=== PATIENT | male | born 1950 ===

== ENCOUNTER → 2017-03-25 | Outpatient (CLI) | payer OTHER ==
--- NOTE | 2017-03-25 16:41 | PCVCIMAG ---
APPROVED REPORT Exam: Stress Echocardiogram Indication: Hyperlipidemia, Hypertension, Chest Burning Stress Nurse: Dee Powell RN Status: routine Ht: 5 ft 10 in HR: 63 bpm BP: 140/90 mmHg Rhythm: NSR Procedure The patient underwent an Exercise Stress Test using the [employer] Protocol. Blood pressure, heart rate, and EKG were monitored. An Echocardiogram was performed by solar installer technician in four stages in quad fashion. At peak stress, four selected images were obtained and placed side by side with resting images for comparison. Stress Test Details Stress Test: Exercise stress testing was performed using a [employer] protocol. HR Resting HR: 63 bpmMax Heart Rate (APMHR): 156 bpm Max HR Achieved: 130 bpmTarget HR (85% APMHR): 132 bpm % of APMHR: 83 HR response to stress: Normal HR response to stress BP Resting BP: 140/90 mmHg Max BP: 182/90 mmHg ECG Resting ECG: Sinus Rhythm Stress ECG: Sinus Rhythm ST Change: ST elevation, strongly positive Maximum ST Deviation: 2 mm Arrhythmia: None Recovery ECG: ST depression Recovery ST Change: Downsloping ST depression Recovery ST Deviation: 1 mm Recovery Arrhythmia: None Clinical Reason for Termination: Maximal effort Exercise duration: 8 min 11 sec Highest Stage Achieved: Stage 3: 3.4 mph at 14% grade. Exercise capacity: 10.10 METs Overall Exercise Capacity for Age: Normal Angina Score: Exercise-Limiting Stress ECG Conclusion Clinical: Ischemic ECG: Ischemic, 2mm ST elevation V3-V6 Hankins Treadmill Score is -10.0 which is Moderate risk. Pre-Stress Echo The resting Echocardiogram showed normal left ventricular contractility with an estimated Ejection Fraction of about >55%. Post-Stress Echo The stress Echocardiogram showed normal left ventricular contractility with an estimated Ejection Fraction of about 55-60%. The stress Echocardiogram demonstrated wall motion abnormality in the inferior and basal inferoseptal garcia . Conclusion Clinical Response: Ischemic Exercise Capacity: Average Stress ECG Response: Ischemic Stress Echo Images: Ischemic Markedly abnormal stress test Clinical, EKG or echocardiographic evidence positive for ischemia. Other Information Study Quality: Good <Conclusion> Markedly abnormal stress test Clinical, EKG or echocardiographic evidence positive for ischemia.
== END | disposition home or self-care (01) ==
LOC: PCVCIMAG 15:00
PROVIDERS: ATTEND Internal Medicine
DX: I10 Essential (primary) hypertension (principal); E78.5 Hyperlipidemia, unspecified; R06.00 Dyspnea, unspecified; R07.89 Other chest pain
CPT/HCPCS: 93325; 93351

== ENCOUNTER → 2017-04-01 | Outpatient (CLI) | payer OTHER ==
--- NOTE | 2017-04-01 14:50 | PCVCIMAG ---
EXAM: DUPLEX ULTRASOUND OF THE RIGHT GROIN INDICATION: Groin swelling and pain. FINDINGS: No pseudoaneurysm is present. The common femoral artery and vein are patent. No arteriovenous fistula is seen. IMPRESSION: Study is negative for pseudoaneurysm. Incidental note is made of a 1.2 x 1.9 x 2.3 cm subcutaneous hematoma in the right groin. LOC:[place] [id number]
== END | disposition home or self-care (01) ==
LOC: PCVCIMAG 13:44
PROVIDERS: ATTEND Internal Medicine
DX: R10.30 Lower abdominal pain, unspecified (principal); R22.41 Localized swelling, mass and lump, right lower limb; M79.81 Nontraumatic hematoma of soft tissue; I10 Essential (primary) hypertension; E78.5 Hyperlipidemia, unspecified; R06.00 Dyspnea, unspecified; Z95.5 Presence of coronary angioplasty implant and graft
CPT/HCPCS: 93926